=== PATIENT | female | born 1930 | race Caucasian/White ===

== ENCOUNTER 2017-08-08 14:42 | Inpatient (IN) | payer OTHER ==
[~2017-08-08] VITALS: Ht 162.6 cm; Wt 49.7 kg
[2017-08-08 15:14] VITALS: Ht 162.6 cm; Wt 49.7 kg
[2017-08-08] MEDS ORDERED: OXYBUTYNIN CHLOR5 MG PO (18:23)
[2017-08-08] MEDS ORDERED: LISINOPRIL2.5 MG PO (18:23)
[2017-08-08] MEDS ORDERED: METOLAZONE2.5 M1 PO (18:23)
[2017-08-08] MEDS ORDERED: NEU300 PO (18:24)
[2017-08-08 19:03] LABS: PLATELET COUNT 157 x10^3mcL (130-400)
[2017-08-08 19:04] LABS: CALCIUM 9.3 mg/dL (8.5-10.1); CARBON DIOXIDE 32.8 mmol/L (21-32); CHLORIDE SERUM 97 mmol/L (98-107); CREATININE SERUM 1.1 mg/dL (0.6-1.0); GLUCOSE SERUM 122 mg/dL (74-106); POTASSIUM SERUM 3.6 mmol/L (3.5-5.1); SODIUM SERUM 138 mmol/L (136-145)
[2017-08-08 19:05] LABS: BASOPHIL % 0 % (0-2); RED CELL DISTRIBUTION WIDTH 15.8 % (11.5-14.5)
[2017-08-08 19:22] LABS: FREE T4 1.22 ng/dL (0.76-1.46); FREE THYROXINE INDEX 3.2 ug/dL (1.4-4.5); T4(THYROXINE) 10.6 ug/dL (4.7-13.3)
[2017-08-08 19:23] LABS: T3 TOTAL 0.67 ng/mL
[2017-08-08 19:28] LABS: ALBUMIN 3.2 g/dL (3.4-5.0); ALKALINE PHOSPHATASE 124 U/L (46-116); ALT/SGPT 28 U/L (14-59); AST/SGOT 49 U/L (15-37); BILIRUBIN TOTAL 0.6 mg/dL (0.20-1.00); C REACTIVE PROTEIN 4.1 mg/dL (<=0.9); TOTAL PROTEIN, SERUM 8.1 g/dL (6.4-8.2)
[2017-08-08 19:55] LABS: MAGNESIUM 1.7 mg/dL (1.8-2.4); PHOSPHOROUS 2.8 mg/dL (2.5-4.9)
[2017-08-08 19:57] LABS: CHOLESTEROL/HDL RATIO 1.7
[2017-08-08 20:05] LABS: CK-MB 1.5 ng/mL (0-3.6)
[2017-08-08 20:13] LABS: ERYTHROCYTE SED RATE 35 mm/hr (0-30)
[2017-08-08 20:27] VITALS: BP 127/58
[2017-08-09 01:58] VITALS: BP 128/58
[2017-08-09 05:56] VITALS: BP 143/45
[2017-08-09 06:27] LABS: BASOPHIL % 0.3 % (0-2)
[2017-08-09 06:42] LABS: CALCIUM 8.5 mg/dL (8.5-10.1); CARBON DIOXIDE 32.9 mmol/L (21-32); CHLORIDE SERUM 102 mmol/L (98-107); CREATININE SERUM 1.4 mg/dL (0.6-1.0); GLUCOSE SERUM 98 mg/dL (74-106); MAGNESIUM 1.7 mg/dL (1.8-2.4); PHOSPHOROUS 3.1 mg/dL (2.5-4.9); POTASSIUM SERUM 4.4 mmol/L (3.5-5.1); SODIUM SERUM 139 mmol/L (136-145)
[2017-08-09 06:48] LABS: PLATELET COUNT 112 x10^3mcL (130-400); RED CELL DISTRIBUTION WIDTH 15.6 % (11.5-14.5)
[2017-08-09 09:17] VITALS: BP 140/43
[2017-08-09 13:04] VITALS: BP 157/64
[2017-08-09 18:11] VITALS: BP 134/53
[2017-08-09 21:34] VITALS: BP 125/57
[2017-08-10 06:02] VITALS: BP 166/92
[2017-08-10 06:29] LABS: BASOPHIL % 0.3 % (0-2)
[2017-08-10 06:34] LABS: PLATELET COUNT 108 x10^3mcL (130-400); RED CELL DISTRIBUTION WIDTH 15.5 % (11.5-14.5)
[2017-08-10 06:52] LABS: CALCIUM 8.7 mg/dL (8.5-10.1); CARBON DIOXIDE 30.1 mmol/L (21-32); CHLORIDE SERUM 103 mmol/L (98-107); CREATININE SERUM 1.2 mg/dL (0.6-1.0); GLUCOSE SERUM 94 mg/dL (74-106); MAGNESIUM 1.8 mg/dL (1.8-2.4); PHOSPHOROUS 3.4 mg/dL (2.5-4.9); POTASSIUM SERUM 5.3 mmol/L (3.5-5.1); SODIUM SERUM 138 mmol/L (136-145)
[2017-08-10 09:53] VITALS: BP 143/66
[2017-08-10 13:20] VITALS: BP 142/59
[2017-08-10 16:58] VITALS: BP 162/58
[2017-08-10 22:15] VITALS: BP 140/68
[2017-08-11 05:44] VITALS: BP 144/68
[2017-08-11 06:33] LABS: PLATELET COUNT 143 x10^3mcL (130-400)
[2017-08-11 06:35] LABS: CALCIUM 8.7 mg/dL (8.5-10.1); CARBON DIOXIDE 25.7 mmol/L (21-32); CHLORIDE SERUM 103 mmol/L (98-107); GLUCOSE SERUM 134 mg/dL (74-106); MAGNESIUM 1.8 mg/dL (1.8-2.4); PHOSPHOROUS 3.4 mg/dL (2.5-4.9); POTASSIUM SERUM 5.3 mmol/L (3.5-5.1); SODIUM SERUM 136 mmol/L (136-145)
[2017-08-11 06:58] LABS: BASOPHIL % 0 % (0-2); RED CELL DISTRIBUTION WIDTH 15.6 % (11.5-14.5)
[2017-08-11 07:10] LABS: microscopic required? NO
[2017-08-11 09:12] LABS: urine erythrocyte NEGATIVE (NEGATIVE)
[2017-08-11 10:35] VITALS: BP 140/72
[2017-08-11 12:57] VITALS: BP 125/58
[2017-08-11 17:48] VITALS: BP 125/58
[2017-08-11 19:26] VITALS: BP 128/71
[2017-08-11 22:41] VITALS: BP 137/63
[2017-08-12 05:05] VITALS: BP 148/60
[2017-08-12 06:49] LABS: BASOPHIL % 0 % (0-2); PLATELET COUNT 119 x10^3mcL (130-400); RED CELL DISTRIBUTION WIDTH 15.6 % (11.5-14.5)
[2017-08-12 06:59] LABS: CALCIUM 8.8 mg/dL (8.5-10.1); CARBON DIOXIDE 33.9 mmol/L (21-32); CHLORIDE SERUM 103 mmol/L (98-107); GLUCOSE SERUM 129 mg/dL (74-106); MAGNESIUM 1.7 mg/dL (1.8-2.4); PHOSPHOROUS 2.7 mg/dL (2.5-4.9); POTASSIUM SERUM 4.6 mmol/L (3.5-5.1); SODIUM SERUM 141 mmol/L (136-145)
[2017-08-12 10:36] VITALS: BP 150/58
[2017-08-12 13:25] VITALS: BP 155/62
[2017-08-12 17:31] VITALS: BP 148/104
[2017-08-12 21:12] VITALS: BP 146/64
[2017-08-13] VITALS (7 sets, daily range): BP systolic 102–148; BP diastolic 52–106
[2017-08-14 05:08] VITALS: BP 152/59
[2017-08-14 06:47] LABS: BASOPHIL % 0 % (0-2); PLATELET COUNT 111 x10^3mcL (130-400); RED CELL DISTRIBUTION WIDTH 15.8 % (11.5-14.5)
[2017-08-14 06:49] LABS: CALCIUM 8.8 mg/dL (8.5-10.1); CHLORIDE SERUM 103 mmol/L (98-107); GLUCOSE SERUM 123 mg/dL (74-106); MAGNESIUM 1.5 mg/dL (1.8-2.4); POTASSIUM SERUM 4.5 mmol/L (3.5-5.1); SODIUM SERUM 141 mmol/L (136-145)
[2017-08-14 09:52] VITALS: BP 154/55
[2017-08-14 13:40] VITALS: BP 150/53
[2017-08-14 17:45] VITALS: BP 121/70
== END 2017-08-14 18:51 | DRG 177 ==
LOC: ED 14:42 → DU 19:28
PROVIDERS: Family Medicine; Specialist
DX: J69.0 Pneumonitis due to inhalation of food and vomit (principal); N17.0 Acute kidney failure with tubular necrosis; J96.00 Acute respiratory failure, unspecified whether with hypoxia or hypercapnia; E44.0 Moderate protein-calorie malnutrition; J44.1 Chronic obstructive pulmonary disease with (acute) exacerbation; E83.42 Hypomagnesemia; N32.81 Overactive bladder; F03.90 Unspecified dementia, unspecified severity, without behavioral disturbance, psychotic disturbance, mood disturbance, and anxiety; I10 Essential (primary) hypertension; Z96.651 Presence of right artificial knee joint; I48.91 Unspecified atrial fibrillation; E87.5 Hyperkalemia; R13.10 Dysphagia, unspecified; M79.2 Neuralgia and neuritis, unspecified; Z68.23 Body mass index [BMI] 23.0-23.9, adult
CPT/HCPCS: 36600; 83880; 84439; 87804; 90658; 97110-GP; 97116-GP; 97530-GP; J1885; J1940; J1956; J2920; J3475; J3490; J7030; J7613; J7620; J7626; J7644; Q0092